=== PATIENT | female | born 1950 | race Caucasian/White ===

== ENCOUNTER → 2019-06-10 | Outpatient (CLI) | payer MEDICARE ==
--- NOTE | 2019-06-10 11:05 | PCVCIMAG ---
EXAM: BILATERAL CAROTID DUPLEX INDICATION: Carotid Occlusive Disease. FINDINGS: Doppler Measurements (centimeters per second): RIGHT: Peak CCA-91, Peak ECA-100, Diastolic ICA-22, Peak ICA-79, ICA/CCA Ratio-0.9. LEFT: Peak CCA-84, Peak ECA-120, Diastolic ICA-21, Peak ICA-96, ICA/CCA Ratio-1.1. RIGHT CAROTID: The carotid bulb has mild plaque. The proximal internal carotid artery shows <40% stenosis. The common carotid artery shows no significant stenosis. The external carotid artery shows no significant stenosis. LEFT CAROTID: The carotid bulb has mild plaque. The proximal internal carotid artery shows <40% stenosis. The common carotid artery shows no significant stenosis. The external carotid artery shows no significant stenosis. Antegrade flow in both vertebral arteries. IMPRESSION: <40% stenosis of the right internal carotid artery with mild plaque. <40% stenosis of the left internal carotid artery with mild plaque. LOC:[place] [id number]
--- NOTE | 2019-06-10 12:08 | PCVCIMAG ---
APPROVED REPORT Study performed: 06/10/2019 10:25:23 EXAM: Comprehensive 2D, Doppler, and color-flow Echocardiogram Patient Location: Echo lab Room #: 2Status: routine BSA: 1.99 HR: 74 bpmBP: 138/82 mmHg Rhythm: NSR Other Information Study Quality: Good Indications Syncope 2D Dimensions IVSd: 7.18 (7-11mm)LVOT Diam: 21.02 (18-24mm) LVDd: 49.56 mm PWd: 7.37 (7-11mm)Ascending Ao: 24.35 (22-36mm) LVDs: 32.53 (25-40mm) Left Atrium: 36.53 (27-40mm) Aortic Root: 24.49 mm LV Single Plane 4CH: 57.88 % LV Single Plane 2CH: 54.51 % Biplane EF: 59.0 % Volumes Left Atrial Volume (Systole) Single Plane 4CH: 47.78 mLSingle Plane 2CH: 63.15 mL Biplane LA Volume: 55.00 mLLA ESV Index: 28.00 mL/m2 Aortic Valve AoV Peak Imtiaz.: 1.52 m/s AO Peak Gr.: 9.20 mmHgLVOT Max P.25 mmHg LVOT Max V: 0.90 m/s JUANY Vmax: 2.06 cm2 Mitral Valve E/A Ratio: 1.0 MV Decel. Time: 159.94 ms MV E Max Imtiaz.: 0.93 m/s MV A Imtiaz.: 0.89 m/s IVRT: 93.43 ms TDI E/Lateral E': 11.63E/Medial E': 11.63 Medial E' Imtiaz.: 0.08 m/s Lateral E' Imtiaz.: 0.08 m/s Pulmonary Valve PV Peak Imtiaz.: 0.93 m/sPV Peak Gr.: 3.46 mmHg Pulmonary Vein P Vein S: 0.59 m/sP Vein A: 0.25 m/s P Vein D: 0.47 m/sP Vein A Dur.: 110.7 msec P Vein S/D Ratio: 1.26 Tricuspid Valve TR Peak Imtiaz.: 2.22 m/s TR Peak Gr.: 19.74 mmHg TV Vmax: 0.64 m/sPA Pressure: 27.00 mmHg Left Ventricle The left ventricle is normal size. There is normal LV segmental wall motion. There is normal left ventricular wall thickness. Left ventricular systolic function is normal. The left ventricular ejection fraction is within the normal range. LVEF is 55-60%. Right Ventricle The right ventricle is normal size. The right ventricular systolic function is normal. Atria The left atrium size is normal. The right atrium size is normal. Aortic Valve Aortic valve is trileaflet. Minimal aortic valve sclerosis. No aortic regurgitation is present. There is no aortic valvular stenosis. Mitral Valve The mitral valve is normal in structure. Mild to moderate mitral regurgitation. No evidence of mitral valve stenosis. Tricuspid Valve The tricuspid valve is normal in structure. Mild tricuspid regurgitation with a PA pressure of 27 mmHg. No pulmonary hypertension. Pulmonic Valve The pulmonary valve is normal in structure. There is no pulmonic valvular regurgitation. Great Vessels The aortic root is normal in size. The ascending aorta is normal in size. Aortic arch is normal in caliber. IVC is normal in size and collapses >50% with inspiration. Pericardium There is no pericardial effusion. There is no pleural effusion. <Conclusion> The left ventricle is normal size. LVEF is 55-60%. The right ventricle is normal size. The left atrium size is normal. Aortic valve is trileaflet. Minimal aortic valve sclerosis. Mild to moderate mitral regurgitation. Mild tricuspid regurgitation with a PA pressure of 27 mmHg. No pulmonary hypertension. The aortic root is normal in size. There is no pericardial effusion.
== END | disposition home or self-care (01) ==
LOC: PCVCIMAG 09:55
PROVIDERS: ATTEND Internal Medicine Cardiovascular Disease
DX: I65.23 Occlusion and stenosis of bilateral carotid arteries (principal); I08.3 Combined rheumatic disorders of mitral, aortic and tricuspid valves; E78.5 Hyperlipidemia, unspecified; R06.02 Shortness of breath; I10 Essential (primary) hypertension; E03.9 Hypothyroidism, unspecified; Z82.49 Family history of ischemic heart disease and other diseases of the circulatory system; Z88.8 Allergy status to other drugs, medicaments and biological substances; Z91.048 Other nonmedicinal substance allergy status; Z72.89 Other problems related to lifestyle; Z79.899 Other long term (current) drug therapy
CPT/HCPCS: 36415; 80061; 93306; 93880; G0463

== ENCOUNTER → 2019-06-20 | Outpatient (CLI) | payer MEDICARE ==
--- NOTE | 2019-06-20 16:04 | PCVCIMAG ---
APPROVED REPORT Study performed: 06/20/2019 11:25:23 Exam: Stress Echocardiogram Indication: Syncope, Hyperlipidemia, Screening for CAD Patient Location: Echo lab Stress Nurse: Polina Stallworth RN Room #: 2 Status: routine Ht: 5 ft 8 in HR: 92 bpm BP: 146/80 mmHg Rhythm: NSR Medical History Medical History: Hyperlipidemia, HTN Cardiac Risk Factors: FHX of CAD, HTN, Hyperlipidemia Previous Cardiac Procedures: nnoe Pretest Chest Pain Characteristics: No chest pain Exercise History: Indeterminate Procedure The patient underwent an Exercise Stress Test using the Kamran Protocol. Blood pressure, heart rate, and EKG were monitored. An Echocardiogram was performed by resident care technician in four stages in quad fashion. At peak stress, four selected images were obtained and placed side by side with resting images for comparison. Stress Test Details Stress Test: Exercise stress testing was performed using a Kamran protocol. HR Resting HR: 92 bpmMax Heart Rate (APMHR): 154 bpm Max HR Achieved: 166 bpmTarget HR (85% APMHR): 130 bpm % of APMHR: 107 Recovery HR: 106 bpm HR response to stress: Normal HR response to stress BP Resting BP: 146/80 mmHg Max BP: 188/90 mmHg Recovery BP: 150/78 mmHg BP response to stress: Normal blood pressure response to stress. ECG Resting ECG: Sinus Rhythm with PACs Stress ECG: Sinus Rhythm ST Change: Non-ischemic Maximum ST Deviation: 0.65 mm Arrhythmia: APC's Recovery ECG: Sinus Rhythm Recovery ST Change: Non-ischemic Recovery ST Deviation: -0.25 mm Recovery Arrhythmia: PACs, Clinical Reason for Termination: Maximal effort Stress Symptoms: Fatigue Exercise duration: 6 min 21 sec Highest Stage Achieved: Stage 3: 3.4 mph at 14% grade. Exercise capacity: 8.0 METs Overall Exercise Capacity for Age: Average Scale: Sedentary Angina Score: None No complications. Stress ECG Conclusion The patient exercised according to the KAMRAN protocol for 6:21 mins; achieving a work level of 8.0 METS. The resting heart rate of 92 bpm janet to a maximum heart rate of 166 bpm. This value represent 107% of the maximal, age-predicted heart rate. The resting blood pressure of 146/80 mmHg, janet to a maximum blood pressure of 188/90 mmHg. The exercise test was stopped due to fatigue . [place] Treadmill Score is 2.8 which is Moderate risk. Pre-Stress Echo The resting Echocardiogram showed normal left ventricular contractility with an estimated Ejection Fraction of about 55-60%. Normal wall motion in all segments on baseline images. Post-Stress Echo The stress Echocardiogram showed normal left ventricular contractility with an estimated Ejection Fraction of about 65-70%. Normal augmentation of wall motion in all segments on post stress images. Clinical No clinical or ECG evidence for ischemia. Conclusion Clinical Response: Non-ischemic Exercise Capacity: Below Average Stress ECG Response: Non-ischemic Stress Echo Images: Non-ischemic No clinical, EKG or echocardiographic evidence for ischemia. No echocardiographic evidence for exercise induced ischemia. Normal stress echocardiogram with maximal exercise stress. Normal color doppler. No regurgitation or stenosis present on pulmonic, mitral, tricuspid or aortic valves. <Conclusion> No clinical, EKG or echocardiographic evidence for ischemia. No echocardiographic evidence for exercise induced ischemia. Normal stress echocardiogram with maximal exercise stress. Normal color doppler. No regurgitation or stenosis present on pulmonic, mitral, tricuspid or aortic valves.
== END | disposition home or self-care (01) ==
LOC: PCVCIMAG 11:18
PROVIDERS: ATTEND Internal Medicine Cardiovascular Disease
DX: I10 Essential (primary) hypertension (principal); E78.5 Hyperlipidemia, unspecified; Z82.49 Family history of ischemic heart disease and other diseases of the circulatory system; Z88.5 Allergy status to narcotic agent
CPT/HCPCS: 93325; 93351